=== PATIENT | female | born 2000 | race Hispanic/Latino ===

== ENCOUNTER 2021-02-12 02:38 | Emergency (ER) | payer SELFPAY ==
[~2021-02-12] VITALS: Ht 157.5 cm; Wt 63.5 kg
[2021-02-12] MEDS ORDERED: DICLOFENAC SODI75 MG PO (04:13)
[2021-02-12] MEDS ORDERED: CYCLOBENZAPRINE10 MG PO (04:13)
== END 2021-02-12 04:37 | disposition home or self-care (01) ==
LOC: ED 02:38
DX: S16.1XXA Strain of muscle, fascia and tendon at neck level, initial encounter (principal); X50.0XXA Overexertion from strenuous movement or load, initial encounter
CPT/HCPCS: 72040; 99283-25